=== PATIENT | male | born 1955 | race Caucasian/White ===

== ENCOUNTER → 2023-12-26 11:35 | Outpatient (REF) | payer MEDICARE, OTHER, SELFPAY | LOC: HWRAD 11:35 | PROVIDERS: ATTENDING PHYSICIAN Family Medicine | DX: F17.210 Nicotine dependence, cigarettes, uncomplicated (principal) | CPT/HCPCS: 71271 ==

== ENCOUNTER → 2024-12-31 08:48 | Outpatient (REF) | payer MEDICARE, OTHER, SELFPAY | LOC: HWRAD 08:48 | PROVIDERS: ATTENDING PHYSICIAN Family Medicine | DX: F17.210 Nicotine dependence, cigarettes, uncomplicated (principal) | CPT/HCPCS: 71271 ==

== ENCOUNTER 2025-02-25 09:21 | Emergency (ER) | payer MEDICARE, OTHER, SELFPAY ==
[2025-02-25 09:23] VITALS: BP 137/76
--- NOTE | 2025-02-25 09:39 | ED.GENMED ---
History of Present Illness
General
Chief Complaint: Musculo-Skeletal Complaint
Time Seen by Provider: 02/25/25 09:27
History of Present Illness
History of Present Illness:
69-year-old male presents to the emergency department for evaluation of right knee pain, he tripped and fell onto a flexed right knee 2 days ago. He is able to bear weight with discomfort. Pain is worse when attempting to stand up. Location of
pain is predominately the medial right knee. Denies any other injuries or pain
Review of Systems
Review of Systems
Allergies reviewed?: Yes
All Other Systems: ROS reviewed and negative except as documented in HPI and ROS
Phy Exam
Physical Exam
Physical Exam:
GEN: Well appearing, NAD, WDWN
HEENT: Oral mucosa moist, no scleral icterus
Cardiac: Regular rate
Lung: No respiratory distress, no tachypnea
MSK: No gross deformity or injuries. Minor swelling to the medial aspect of the right knee with no bony deformity. Range of motion normal however flexion elicits pain. Able to perform straight leg raise. No anterior drawer or valgus stress laxity
Skin: Good color, no pallor or jaundice, no rashes
Neuro: AO x3, moves all extremities freely
Psych: Calm, cooperative
Course
Orders/Labs/Results
Orders:
Orders
02/25/25 09:25
Knee, Right 4 or More Views [CR Knee- Right 4 Or More View*] Urgent
Comment:
Reason For Exam: fell on tuesday and landed on right knee
Vital Signs
Initial and Last Documented VS:
Initial Vital Signs
Temp Pulse Resp BP Pulse Ox
98.7 F 78 16 137/76 98
02/25/25 09:23 02/25/25 09:23 02/25/25 09:23 02/25/25 09:23 02/25/25 09:23
Last Documented Vital Signs
Temp Pulse Resp BP Pulse Ox
98.7 F 78 16 137/76 98
02/25/25 09:23 02/25/25 09:23 02/25/25 09:23 02/25/25 09:23 02/25/25 09:41
MDM/Problems Addressed
MDM/Problems Addressed:
X-rays independently interpreted by me are negative for fracture. Discussed supportive care for bone contusion
*Pulse Oximetry
SaO2: 98
Oxygen Mode of Delivery: Room air
Patient hypoxic: no
*Critical Care Note
Total Time (30-74mins, 75-104mins- exclusive of procedures): Not Applicable
ED Attending Note
-
Portions of this chart may have been created with voice recognition software.� Occasional wrong word or��sound alike� substitutions may have occurred due to the inherent limitations of voice recognition software.
Discharge Plan
Departure
Patient Disposition: Home (Routine Discharge)
Date of Disposition: 02/25/25
Time of Disposition: 09:40
Patient with high blood pressure during this ER visit?: No
Discharge Problem:
Contusion of knee, right
Instructions: Contusion (DC)
Referrals:
Felipe Wheeler MD [Family Provider, Family Practice]
Activity Restrictions/Additional Instructions:
Ice the knee and take ibuprofen as needed for pain. You may perform activities as tolerated.
Interventions
Interventions:
*Risk Screen - Suicide Last Done: 02/25/25 09:23
*General Assessment Last Done: 02/25/25 09:30
*Neglect/Abuse Screening Last Done: 02/25/25 09:23
*ED- Fall Risk Assessment Last Done: 02/25/25 09:29
*ED COVID-19 Vaccine History Last Done: 02/25/25 09:29
*Nursing Disposition Last Done: 02/25/25 09:43
ED-Musculoskeletal Assessment Last Done: 02/25/25 09:29
Discharge Date and Time
Discharge Date/Time: 02/25/25 09:44
Print Language: [id number]
== END 2025-02-25 09:44 | disposition home or self-care (01) ==
LOC: EMR 09:21
PROVIDERS: EMERGENCY PHYSICIAN Student in an Organized Health Care Education/Training Program; FAMILY PHYSICIAN Family Medicine
DX: S80.01XA Contusion of right knee, initial encounter (principal); W01.0XXA Fall on same level from slipping, tripping and stumbling without subsequent striking against object, initial encounter
CPT/HCPCS: 99283; 73564

== ENCOUNTER → 2025-07-21 07:44 | Outpatient (REF) | payer MEDICARE, OTHER, SELFPAY | LOC: MRI 07:44 | PROVIDERS: ATTENDING PHYSICIAN Family Medicine | DX: R26.89 Other abnormalities of gait and mobility (principal); R29.6 Repeated falls; R29.818 Other symptoms and signs involving the nervous system | CPT/HCPCS: 70551 ==